=== PATIENT | male | born 1945 | race Caucasian/White ===

== ENCOUNTER 2017-02-05 11:26 | Inpatient (IN) | payer OTHER ==
[2017-02-05] MEDS ORDERED: Magnesium Hydroxide 400 MG/5 ML Susp 30 ML Cup PO PRN (12:06)
[2017-02-05] MEDS ORDERED: Acetaminophen 325 MG Tab PO PRN (12:06)
[2017-02-05] MEDS ORDERED: Albuterol 0.083% 2.5 MG/3 ML Neb Soln NEB PRN (12:06)
[2017-02-05] MEDS ORDERED: PHENYTOIN 100 MG PO SCH (12:06)
[2017-02-05] MEDS ORDERED: DOCUSATE SODIUM PO SCH (12:06)
[2017-02-05] MEDS ORDERED: ONDANSETRON 4 MG PO PRN (12:06)
[2017-02-05] MEDS ORDERED: Polyethylene Glycol 3350 Powder 17 GM Packet PO PRN (12:06)
[2017-02-05] MEDS ORDERED: Zolpidem 5 MG Tab PO PRN (12:06)
[2017-02-05] MEDS ORDERED: SENNOSIDES PO SCH (12:06)
[2017-02-05] MEDS ORDERED: Docusate Sodium 100 MG Cap PO PRN (12:06)
--- NOTE | 2017-02-05 12:56 | CR ---
Abdomen 2V AP Upright Decub HISTORY: Persistent nausea and vomiting FINDINGS: Bowel gas pattern is nonspecific. There is moderate fecal material in the ascending and transverse c olon. No obstruction or free air is identified. No soft tissue mass, organomegaly, or abnormal calci fications are seen. Bony structures are unremarkable. IMPRESSION: Moderate fecal material in the proximal colon. Nonspecific abdomen. No signs of mass, obstruction, o r free air.
[2017-02-05] MEDS ORDERED: Haloperidol 1 MG Tab PO PRN (13:30)
[2017-02-05] MEDS ORDERED: Sodium Phosphate,Monobasic/Sodium Phosphate,Dibasic Enema 133 ML Bottle RECTAL PRN (13:34)
[2017-02-05] MEDS ORDERED: Bisacodyl 10 MG Supp RECTAL ONE (14:00)
[2017-02-05] MEDS: Polyethylene Glycol 3350 Powder 17 GM Packet PO SCH ×2 (14:14→21:20)
[2017-02-05] MEDS: SENNOSIDES PO SCH ×2 (14:15→21:26)
[2017-02-05] MEDS: DOCUSATE SODIUM PO SCH ×2 (14:15→21:26)
--- NOTE | 2017-02-05 15:07 | PCM.HP ---
H&P History of Present Illness - General Date of Service: 02/05/17 Admit Problem/Dx: Admission Diagnosis/Problem Admission Diagnosis/Problem Nausea and vomiting Source of Information: Patient, Family, Old Records, RN Notes Reviewed History Limitations: Reports: No Limitations - History of Present Illness Initial Comments - Free Text/Narative: Mr. Cleaning is a 71-year-old gentleman who has a known history of severe esophageal cancer and is currently enrolled in hospice. Over the past 2 weeks since his hospice admission is had ongoing difficulty with constipation and resultant nausea and vomiting. Associated with this has also been abdominal pain occurring in his left upper quadrant. Pain is intermittent and has been relatively well controlled with current interventions. He has failed outpatient management of his nausea and vomiting with constipation. He is admitted to hospice inpatient status at this time for management of these symptoms. - Related Data Allergies/Adverse Reactions: Allergies Allergy/AdvReac Type Severity Reaction Status Date / Time bees Allergy Severe Anaphylactic Uncoded 11/06/16 10:46 Shock Home Medications: Home Meds Calcium Carbonate [Tums] 500 mg PO ASDIRECTED PRN 08/07/16 [History] Esomeprazole Magnesium [Nexium] 40 mg PO DAILY 08/07/16 [History] Sennosides/Docusate Sodium [Senna-Docusate Sodium Tablet] 8.6 - 50 mg PO BID [History] Acetaminophen [Tylenol Extra Strength] 500 mg PO BID 02/05/17 [History] Bisacodyl [Dulcolax] 10 mg PO PRN 02/05/17 [History] Bisacodyl [Dulcolax] 10 mg RC ASDIRECTED PRN 02/05/17 [History] Furosemide [Lasix] 20 mg PO DAILY 02/05/17 [History] LORazepam 0.5 mg PO BEDTIME 02/05/17 [History] Melatonin 5 mg PO BEDTIME 02/05/17 [History] Morphine [Morphine 20 MG/ML Soln] 10 mg PO ASDIRECTED PRN 02/05/17 [History] Multivitamin [Daily Multiple Vitamin] 1 tab PO DAILY 02/05/17 [History] Ondansetron [Zofran] 4 mg PO BID 02/05/17 [History] Ondansetron [Zofran] 4 mg PO Q4H PRN 02/05/17 [History] Phenytoin Sodium Extended [Dilantin] 200 mg PO BID 02/05/17 [History] Polyethylene Glycol 3350 [Miralax] 17 gm PO DAILY 02/05/17 [History] fentaNYL [Duragesic] 12 mcg TD Q72H 02/05/17 [History] Past Medical History HEENT History: Reports: Impaired Vision Other HEENT History: wears glasses Cardiovascular History: Reports: Hypertension Gastrointestinal History: Reports: Colon Polyp, GERD, GI Bleed, Hiatal Hernia, Other (See Below) Other Gastrointestinal History: anorexia with blood in stool, esophageal cancer Musculoskeletal History: Reports: Fracture Neurological History: Reports: Seizure Other Neuro History: last seizure about 23 yrs ago according to patient. takes dilantin Psychiatric History: Reports: Learning Disability Hematologic History: Reports: Anemia Oncologic (Cancer) History: Reports: Esophageal Dermatologic History: Reports: Other (See Below) Other Dermatologic History: left thoracic spinal area has scab from pressure sore on admission - Past Surgical History HEENT Surgical History: Reports: None Cardiovascular Surgical History: Reports: None GI Surgical History: Reports: None, EGD Dermatological Surgical History: Reports: None Social & Family History - Family History Family Medical History: Noncontributory - Tobacco Use Smoking Status *Q: Never Smoker Second Hand Smoke Exposure: No - Caffeine Use Caffeine Use: Reports: Coffee Other Caffeine Use: few cups per day - Recreational Drug Use Recreational Drug Use: No H&P Review of Systems - Review of Systems: Review Of Systems: See Below General: Reports: Weakness, Weight Loss Pulmonary: Reports: No Symptoms Cardiovascular: Reports: No Symptoms Gastrointestinal: Reports: Abdominal Pain, Constipation, Difficulty Swallowing, Nausea, Vomiting Genitourinary: Reports: No Symptoms Exam - Exam Exam: See Below - Vital Signs Vital Signs: Last Vital Signs Temp 97.7 F 02/05/17 12:06 Pulse 87 02/05/17 12:06 Resp 16 02/05/17 12:06 BP 112/70 02/05/17 12:06 Pulse Ox Weight: 115 lb - Exam General: Alert, Oriented, Cooperative, Moderate Distress HEENT: Conjunctiva Clear, Hearing Intact, Mucosa Moist & [place], Nares Patent, Normal Nasal Septum, Posterior Pharynx Clear, Pupils Equal, Pupils Reactive Neck: Supple, Trachea Midline, +2 Carotid Pulse wo Bruit Lungs: Clear to Auscultation, Normal Respiratory Effort Cardiovascular: Regular Rate, Regular Rhythm, Normal S1, Normal S2 Abdomen: Soft, Distention, Tenderness, Hypoactive Bowel Sounds. No: Organomegaly, Peritoneal Signs, Guarding, Rigidity Back Exam: Normal Inspection, Full Range of Motion, NT Extremities: Edema Skin: Warm, Dry, Intact *Q Meaningful Use (ADM) - VTE *Q VTE Criteria *Q: VTE Anticoagulation Contraindications: Med/tx not indicated/need - VTE Risk Assess *Q Each Risk Factor Represents 1 Point: Swollen Legs, Current Total Score 1 Point Risk Factors: 1 Each Risk Factor Represents 2 Points: Age 60 - 74 Years Total Score 2 Point Risk Factors: 2 Each Risk Factor Represents 3 Points: Present Cancer or Chemotherapy Total Score 3 Point Risk Factors: 3 Each Risk Factor Represents 5 Points: None Total Score 5 Point Risk Factors: 0 Venous Thromboembolism Risk Factor Score *Q: 6 - Stroke *Q Stroke Criteria *Q: - AMI *Q AMI Criteria *Q: Problem List Initiated/Reviewed/Updated: Yes Orders Last 24hrs: Active Orders 24 hr Category Date Time Status Patient Status [ADT] Routine ADT 02/05/17 12:06 Active Intake and Output [RC] QSHIFT Care 02/05/17 12:06 Active Oxygen Therapy [RC] PRN Care 02/05/17 12:06 Active RT Aerosol Therapy [RC] ASDIRECTED Care 02/05/17 12:06 Active Up With Assistance [RC] ASDIRECTED Care 02/05/17 12:06 Active VTE/DVT Education [RC] Per Unit Routine Care 02/05/17 12:06 Active Vital Signs [RC] Q4H Care 02/05/17 12:06 Active Consult to Spiritual Care [CONS] Routine Cons 02/05/17 12:06 Active Regular Diet [DIET] Diet 02/05/17 Lunch Active Acetaminophen [Tylenol Extra Strength] Med 02/05/17 21:00 Active 500 mg PO BID Acetaminophen [Tylenol] Med 02/05/17 12:06 Active 650 mg PO Q4H PRN Albuterol [Proventil Neb Soln] Med 02/05/17 12:06 Active 2.5 mg NEB Q4H PRN Docusate Sodium/Sennosides [Senna Plus] Med 02/05/17 13:45 Active 2 tab PO BID Erythromycin Ethylsuccinate [Eryped 400] Med 02/05/17 16:00 Ordered 250 mg PO QID Esomeprazole Magnesium [Nexium] Med 02/06/17 07:30 Active 0 mg PO DAILY@0730 Furosemide [Lasix] Med 02/06/17 09:00 Active 20 mg PO DAILY Haloperidol [Haldol] Med 02/05/17 13:30 Active 2 mg PO Q4H PRN LORazepam [Ativan ORAL Concentrate 1MG/0.5 ML U/D] Med 02/05/17 12:06 Active 0.5 - 1 mg SL Q2H PRN LORazepam [Ativan] Med 02/05/17 21:00 Active 0.5 mg PO BEDTIME Magnesium Hydroxide [Milk of Magnesia] Med 02/05/17 12:06 Active 30 ml PO Q12H PRN Melatonin Med 02/05/17 21:00 Active 6 mg PO BEDTIME Morphine [Morphine 10 MG/0.5 ML Oral Syringe] Med 02/05/17 12:06 Active 5 - 10 mg SL Q1H PRN Na Phos,M-B/Na Phos,DI-B [Fleet Enema] Med 02/05/17 13:34 Active 133 ml RECTAL ONETIME PRN Non-Formulary Medication [NF Drug] Med 02/05/17 12:06 Active 0 each PO Q6H PRN Phenytoin Med 02/05/17 21:00 Active 200 mg PO BID Polyethylene Glycol 3350 [MiraLAX] Med 02/05/17 12:06 Active 17 gm PO DAILY PRN Polyethylene Glycol 3350 [MiraLAX] Med 02/05/17 13:45 Active 34 gm PO BID Psyllium Husk/Aspartame [Metamucil Sugar Free] Med 02/06/17 09:00 Active 1 packet PO DAILY Scopolamine [Transderm-Scop] Med 02/05/17 14:15 Ordered 1.5 mg TRDERM Q72H Zolpidem [Ambien] Med 02/05/17 12:06 Active 5 mg PO BEDTIME PRN Anticoagulation Contraindications VTE [AST] Per Unit Oth 02/05/17 12:06 Ordered Routine Resuscitation Status Routine Resus Stat 02/05/17 11:53 Ordered Medication Orders Acetaminophen (Tylenol) 650 mg PO Q4H PRN PRN Reason: Pain (Mild 1-3)/fever Last Admin: 02/05/17 14:22 Dose: 650 mg Acetaminophen (Tylenol Extra Strength) 500 mg PO BID [facility] Albuterol (Proventil Neb Soln) 2.5 mg NEB Q4H PRN PRN Reason: Shortness Of Breath/wheezing Erythromycin Ethylsuccinate (Eryped 400) 250 mg PO QID [facility] Furosemide (Lasix) 20 mg PO DAILY [facility] Haloperidol (Haldol) 2 mg PO Q4H PRN PRN Reason: Nausea Lorazepam (Ativan Oral Concentrate 1mg/0.5 Ml U/D) 0.5 - 1 mg SL Q2H PRN PRN Reason: Nausea Lorazepam (Ativan) 0.5 mg PO BEDTIME [facility] Magnesium Hydroxide (Milk Of Magnesia) 30 ml PO Q12H PRN PRN Reason: Constipation Melatonin (Melatonin) 6 mg PO BEDTIME [facility] Morphine Sulfate (Morphine 10 Mg/0.5 Ml Oral Syringe) 5 - 10 mg SL Q1H PRN PRN Reason: Pain Nexium 40 Mg (Ptom) 0 mg PO DAILY@0730 [facility] Ondansetron 4mg ( (Ptom)) 0 each PO Q6H PRN PRN Reason: Nausea able to take PO Phenytoin Sodium (Phenytoin) 200 mg PO BID [facility] Polyethylene Glycol (Miralax) 17 gm PO DAILY PRN PRN Reason: Constipation Polyethylene Glycol (Miralax) 34 gm PO BID [facility] Last Admin: 02/05/17 14:14 Dose: 34 gm Psyllium Husk (Metamucil Sugar Free) 1 packet PO DAILY [facility] Scopolamine (Transderm-Scop) 1.5 mg TRDERM Q72H [facility] Senna/Docusate Sodium (Senna Plus) 2 tab PO BID [facility] Last Admin: 02/05/17 14:15 Dose: 2 tab Sodium Biphosphate/Sodium Phosphate (Fleet Enema) 133 ml RECTAL ONETIME PRN PRN Reason: Constipation Zolpidem Tartrate (Ambien) 5 mg PO BEDTIME PRN PRN Reason: Sleep Assessment/Plan Comment:: ASSESSMENT AND PLAN OBSTIPATION WITH NAUSEA AND VOMITING-ongoing symptoms over the past 2 weeks, has now failed outpatient management. Abdominal flat plate and upright x-ray obtained on admission shows no evidence of bowel obstruction but does document moderate amount of stool within the colon. He will be admitted to hospice inpatient status for management of symptoms, having failed outpatient treatment -Scopolamine patch -Erythromycin 250 mg by mouth 4 times a day -Senna as 2 tablets twice daily -MiraLAX 34 g by mouth twice a day -Dulcolax suppository -Fleet enema x2 if no results from suppository -Zofran, lorazepam, and/or Haldol as needed for nausea ESOPHAGEAL CANCER -Discontinue fentanyl patch because of lack of subcutaneous fat -Morphine 5-10 mg sublingually every hour as needed for pain MAINTENANCE ISSUES -DVT prophylaxis; not indicated -GI prophylaxis; continue PPI therapy -Polo catheter; none indicated -Nutrition; regular diet as tolerated -Nicotine dependence; not required CODE STATUS-DNR/DNI, comfort cares only ADMISSION STATUS-patient will be admitted to inpatient status, expect at least a 2 night hospital stay for evaluation and management of problems as outlined above. At the time of this admission I do not reasonably expected evaluation and management of this problem will require more than a 96 hour hospital stay. DISPOSITION-anticipate discharge to home with hospice, after his hospital stay PRIMARY CARE PROVIDER-
[2017-02-05] MEDS: Scopolamine 1.5 MG Transdermal Patch TRDERM SCH (16:34)
[2017-02-05] MEDS: Erythromycin Ethylsuccinate Susp 400 MG/5 ML 100 ML Bottle PO SCH ×2 (16:35→21:35)
[2017-02-05] MEDS ORDERED: Docusate Sodium 100 MG Cap PO SCH (21:00)
[2017-02-05] MEDS: Morphine 10 MG/0.5 ML Oral Syringe SL PRN (21:24)
[2017-02-05] MEDS: LORazepam 0.5 MG Tab PO SCH (21:25)
[2017-02-05] MEDS: MELATONIN 3 MG PO SCH (21:27)
[2017-02-05] MEDS: PHENYTOIN 100 MG PO SCH (21:27)
[2017-02-05] MEDS: Acetaminophen 500 MG Tab PO SCH (21:28)
[2017-02-06] MEDS: Erythromycin Ethylsuccinate Susp 400 MG/5 ML 100 ML Bottle PO SCH ×4 (06:01→22:59)
[2017-02-06] MEDS: NEXIUM 40 MG PO SCH (07:20)
[2017-02-06] MEDS: PHENYTOIN 100 MG PO SCH ×2 (09:06→21:48)
[2017-02-06] MEDS: Furosemide 20 MG (PTOM) PO SCH (09:07)
[2017-02-06] MEDS: DOCUSATE SODIUM PO SCH ×2 (09:09→21:50)
[2017-02-06] MEDS: SENNOSIDES PO SCH ×2 (09:09→21:50)
[2017-02-06] MEDS: Psyllium Husk Powder Sugar Free 3.4 GM Packet PO SCH (09:09)
[2017-02-06] MEDS: Polyethylene Glycol 3350 Powder 17 GM Packet PO SCH ×2 (09:10→21:48)
[2017-02-06] MEDS: CHECK SCOPOLAMINE PATCH TOP SCH (09:10)
[2017-02-06] MEDS: Acetaminophen 500 MG Tab PO SCH ×2 (10:35→21:50)
[2017-02-06] MEDS ORDERED: Bisacodyl 10 MG Supp RECTAL ONE (14:00)
--- NOTE | 2017-02-06 15:45 | PCM.PN ---
- General Info Date of Service: 02/06/17 Functional Status: Reports: pain controlled, tolerating diet - Review of Systems General: Reports: Weakness. Denies: Fever, Chills Pulmonary: Reports: no symptoms Cardiovascular: Reports: No Symptoms Gastrointestinal: Reports: Abdominal pain, Constipation, Nausea. Denies: Vomiting Systems Review Comment:: Mr. Cleaning has improved since admission, he did have a large bowel movement yesterday afternoon. Appetite is better with improved oral intake. Continues to feel somewhat bloated today with abdominal discomfort. - Patient Data Vitals - most recent: Last Vital Signs Temp 97.1 F 02/06/17 07:08 Pulse 90 02/06/17 07:08 Resp 18 02/06/17 07:08 BP 106/87 02/06/17 07:08 Pulse Ox 92 L 02/05/17 23:26 Weight - most recent: 130 lb Med Orders - Current: Current Medications Acetaminophen (Tylenol) 650 mg PO Q4H PRN PRN Reason: Pain (Mild 1-3)/fever Last Admin: 02/05/17 14:22 Dose: 650 mg Acetaminophen (Tylenol Extra Strength) 500 mg PO BID [facility] Last Admin: 02/06/17 10:35 Dose: 500 mg Albuterol (Proventil Neb Soln) 2.5 mg NEB Q4H PRN PRN Reason: Shortness Of Breath/wheezing Erythromycin Ethylsuccinate (Eryped 400) 250 mg PO QID [facility] Last Admin: 02/06/17 10:32 Dose: 250 mg Furosemide (Lasix) 20 mg PO DAILY [facility] Last Admin: 02/06/17 09:07 Dose: 20 mg Haloperidol (Haldol) 2 mg PO Q4H PRN PRN Reason: Nausea Lorazepam (Ativan Oral Concentrate 1mg/0.5 Ml U/D) 0.5 - 1 mg SL Q2H PRN PRN Reason: Nausea Lorazepam (Ativan) 0.5 mg PO BEDTIME [facility] Last Admin: 02/05/17 21:25 Dose: 0.5 mg Magnesium Hydroxide (Milk Of Magnesia) 30 ml PO Q12H PRN PRN Reason: Constipation Melatonin (Melatonin) 6 mg PO BEDTIME [facility] Last Admin: 02/05/17 21:27 Dose: 6 mg Morphine Sulfate (Morphine 10 Mg/0.5 Ml Oral Syringe) 5 - 10 mg SL Q1H PRN PRN Reason: Pain Last Admin: 02/05/17 21:24 Dose: 10 mg Nexium 40 Mg (Ptom) 0 mg PO DAILY@0730 [facility] Last Admin: 02/06/17 07:20 Dose: 40 mg Ondansetron 4mg ( (Ptom)) 0 each PO Q6H PRN PRN Reason: Nausea able to take PO Check Scopolamine (Patch) 1 each TOP DAILY [facility] Last Admin: 02/06/17 09:10 Dose: Not Given Phenytoin Sodium (Phenytoin) 200 mg PO BID [facility] Last Admin: 02/06/17 09:06 Dose: 200 mg Polyethylene Glycol (Miralax) 17 gm PO DAILY PRN PRN Reason: Constipation Polyethylene Glycol (Miralax) 34 gm PO BID [facility] Last Admin: 02/06/17 09:10 Dose: 34 gm Psyllium Husk (Metamucil Sugar Free) 1 packet PO DAILY [facility] Last Admin: 02/06/17 09:09 Dose: 1 packet Scopolamine (Transderm-Scop) 1.5 mg TRDERM Q72H [facility] Last Admin: 02/05/17 16:34 Dose: 1.5 mg Senna/Docusate Sodium (Senna Plus) 2 tab PO BID [facility] Last Admin: 02/06/17 09:09 Dose: 2 tab Sodium Biphosphate/Sodium Phosphate (Fleet Enema) 133 ml RECTAL ONETIME PRN PRN Reason: Constipation Zolpidem Tartrate (Ambien) 5 mg PO BEDTIME PRN PRN Reason: Sleep Discontinued Medications Bisacodyl (Dulcolax) 10 mg RECTAL ONETIME ONE Stop: 02/05/17 14:01 Last Admin: 02/05/17 14:15 Dose: 10 mg Bisacodyl (Dulcolax) 10 mg RECTAL ONETIME ONE Stop: 02/06/17 14:01 Last Admin: 02/06/17 14:20 Dose: 10 mg Docusate Sodium (Colace) 100 mg PO BID PRN PRN Reason: Constipation Docusate Sodium (Colace) 100 mg PO BID [facility] Phenytoin Sodium (Phenytoin) 200 mg PO BID [facility] Last Admin: 02/05/17 17:46 Dose: Not Given Senna/Docusate Sodium (Senna Plus) 1 tab PO BID [facility] Last Admin: 02/05/17 17:46 Dose: Not Given - Exam General: alert, oriented, cooperative, mild distress Lungs: Clear to auscultation, Normal respiratory effort Cardiovascular: Regular Rate, Regular Rhythm, No Murmurs Abdomen: bowel sounds present, soft, no tenderness, no distension Extremities: edema Skin: warm, dry, intact - Problem List Review Problem List Initiated/Reviewed/Updated: Yes - My Orders Last 24 Hours: My Active Orders 02/05/17 16:00 Erythromycin Ethylsuccinate [Eryped 400] 250 mg PO QID 02/05/17 21:00 Acetaminophen [Tylenol Extra Strength] 500 mg PO BID LORazepam [Ativan] 0.5 mg PO BEDTIME Melatonin 6 mg PO BEDTIME Phenytoin 200 mg PO BID 02/06/17 07:30 Esomeprazole Magnesium [Nexium] 0 mg PO DAILY@0730 02/06/17 09:00 Furosemide [Lasix] 20 mg PO DAILY Non-Formulary Medication [NF Drug] 1 each TOP DAILY Psyllium Husk/Aspartame [Metamucil Sugar Free] 1 packet PO DAILY - Plan Plan:: ASSESSMENT AND PLAN OBSTIPATION WITH NAUSEA AND VOMITING-ongoing symptoms over the past 2 weeks, has now failed outpatient management. Somewhat improved since admission, continues to feel bloated with abdominal distention and intermittent nausea. Oral intake has improved since admission but has made his abdominal symptoms somewhat worse. -Scopolamine patch -Erythromycin 250 mg by mouth 4 times a day -SennaS 2 tablets twice daily -MiraLAX 34 g by mouth twice a day -Dulcolax suppository -Fleet enema x2 if no results from suppository -Zofran, lorazepam, and/or Haldol as needed for nausea ESOPHAGEAL CANCER -Discontinue fentanyl patch because of lack of subcutaneous fat -Morphine 5-10 mg sublingually every hour as needed for pain MAINTENANCE ISSUES -DVT prophylaxis; not indicated -GI prophylaxis; continue PPI therapy -Polo catheter; none indicated -Nutrition; regular diet as tolerated -Nicotine dependence; not required CODE STATUS-DNR/DNI, comfort cares only ADMISSION STATUS-patient will be admitted to inpatient status, expect at least a 2 night hospital stay for evaluation and management of problems as outlined above. At the time of this admission I do not reasonably expected evaluation and management of this problem will require more than a 96 hour hospital stay. DISPOSITION-anticipate discharge to home with hospice, after his hospital stay PRIMARY CARE PROVIDER-
[2017-02-06] MEDS: LORazepam ORAL Concentrate 1MG/0.5ML U/D SL PRN (17:06)
[2017-02-06] MEDS ORDERED: Sodium Phosphate,Monobasic/Sodium Phosphate,Dibasic Enema 133 ML Bottle RECTAL ONE (17:38)
[2017-02-06] MEDS: MELATONIN 3 MG PO SCH (21:49)
[2017-02-06] MEDS: LORazepam 0.5 MG Tab PO SCH (21:54)
[2017-02-07] MEDS: NEXIUM 40 MG PO SCH (07:16)
[2017-02-07] MEDS: Erythromycin Ethylsuccinate Susp 400 MG/5 ML 100 ML Bottle PO SCH ×4 (07:16→22:10)
[2017-02-07] MEDS: SENNOSIDES PO SCH ×2 (08:46→22:10)
[2017-02-07] MEDS: Furosemide 20 MG (PTOM) PO SCH (08:46)
[2017-02-07] MEDS: DOCUSATE SODIUM PO SCH ×2 (08:46→22:10)
[2017-02-07] MEDS: PHENYTOIN 100 MG PO SCH ×2 (08:46→22:09)
[2017-02-07] MEDS: Psyllium Husk Powder Sugar Free 3.4 GM Packet PO SCH (08:47)
[2017-02-07] MEDS: Polyethylene Glycol 3350 Powder 17 GM Packet PO SCH ×2 (08:47→22:10)
[2017-02-07] MEDS: Acetaminophen 500 MG Tab PO SCH ×2 (08:47→22:10)
[2017-02-07] MEDS: CHECK SCOPOLAMINE PATCH TOP SCH (08:47)
[2017-02-07] MEDS: Morphine 10 MG/0.5 ML Oral Syringe SL PRN (10:16)
[2017-02-07] MEDS ORDERED: Bisacodyl 5 MG Tab PO ONE ×2 (12:00→20:00)
[2017-02-07] MEDS: LORazepam ORAL Concentrate 1MG/0.5ML U/D SL PRN ×2 (12:03→17:03)
--- NOTE | 2017-02-07 12:31 | PCM.PN ---
- General Info Date of Service: 02/07/17 Functional Status: Reports: pain controlled - Review of Systems General: Reports: Weakness. Denies: Fever, Chills Pulmonary: Reports: no symptoms Cardiovascular: Reports: No Symptoms Gastrointestinal: Reports: Abdominal pain, Constipation, Nausea. Denies: Vomiting Systems Review Comment:: This patient has improved since admission but continues to have ongoing difficulty with abdominal distention, pain, and constipation. He has had bowel movements last 2 days but continues to feel bloated, some of this may be secondary to ascites related to his underlying malignancy. Oral intake has been better since admission. - Patient Data Vitals - most recent: Last Vital Signs Temp 96.2 F 02/07/17 10:00 Pulse 89 02/07/17 10:00 Resp 22 H 02/07/17 10:00 BP 105/66 02/07/17 10:00 Pulse Ox 95 02/06/17 19:46 Weight - most recent: 130 lb Med Orders - Current: Current Medications Acetaminophen (Tylenol) 650 mg PO Q4H PRN PRN Reason: Pain (Mild 1-3)/fever Last Admin: 02/05/17 14:22 Dose: 650 mg Acetaminophen (Tylenol Extra Strength) 500 mg PO BID [facility] Last Admin: 02/07/17 08:47 Dose: 500 mg Albuterol (Proventil Neb Soln) 2.5 mg NEB Q4H PRN PRN Reason: Shortness Of Breath/wheezing Bisacodyl (Dulcolax) 10 mg PO ONETIME ONE Stop: 02/07/17 20:01 Erythromycin Ethylsuccinate (Eryped 400) 250 mg PO QID [facility] Last Admin: 02/07/17 10:16 Dose: 250 mg Furosemide (Lasix) 20 mg PO DAILY [facility] Last Admin: 02/07/17 08:46 Dose: 20 mg Haloperidol (Haldol) 2 mg PO Q4H PRN PRN Reason: Nausea Lorazepam (Ativan Oral Concentrate 1mg/0.5 Ml U/D) 0.5 - 1 mg SL Q2H PRN PRN Reason: Nausea Last Admin: 02/07/17 12:03 Dose: 1 mg Lorazepam (Ativan) 0.5 mg PO BEDTIME [facility] Last Admin: 02/06/17 21:54 Dose: 0.5 mg Magnesium Hydroxide (Milk Of Magnesia) 30 ml PO Q12H PRN PRN Reason: Constipation Melatonin (Melatonin) 6 mg PO BEDTIME [facility] Last Admin: 02/06/17 21:49 Dose: 6 mg Morphine Sulfate (Morphine 10 Mg/0.5 Ml Oral Syringe) 5 - 10 mg SL Q1H PRN PRN Reason: Pain Last Admin: 02/07/17 10:16 Dose: 10 mg Nexium 40 Mg (Ptom) 0 mg PO DAILY@0730 [facility] Last Admin: 02/07/17 07:16 Dose: 40 mg Ondansetron 4mg ( (Ptom)) 0 each PO Q6H PRN PRN Reason: Nausea able to take PO Check Scopolamine (Patch) 1 each TOP DAILY [facility] Last Admin: 02/07/17 08:47 Dose: Not Given Phenytoin Sodium (Phenytoin) 200 mg PO BID [facility] Last Admin: 02/07/17 08:46 Dose: 200 mg Polyethylene Glycol (Miralax) 17 gm PO DAILY PRN PRN Reason: Constipation Polyethylene Glycol (Miralax) 34 gm PO BID [facility] Last Admin: 02/07/17 08:47 Dose: 34 gm Polyethylene Glycol (Miralax) 238 gm PO ONETIME ONE Stop: 02/07/17 14:01 Psyllium Husk (Metamucil Sugar Free) 1 packet PO DAILY [facility] Last Admin: 02/07/17 08:47 Dose: 1 packet Scopolamine (Transderm-Scop) 1.5 mg TRDERM Q72H [facility] Last Admin: 02/05/17 16:34 Dose: 1.5 mg Senna/Docusate Sodium (Senna Plus) 2 tab PO BID [facility] Last Admin: 02/07/17 08:46 Dose: 2 tab Sodium Biphosphate/Sodium Phosphate (Fleet Enema) 133 ml RECTAL ONETIME PRN PRN Reason: Constipation Last Admin: 02/06/17 16:48 Dose: 133 ml Zolpidem Tartrate (Ambien) 5 mg PO BEDTIME PRN PRN Reason: Sleep Discontinued Medications Bisacodyl (Dulcolax) 10 mg RECTAL ONETIME ONE Stop: 02/05/17 14:01 Last Admin: 02/05/17 14:15 Dose: 10 mg Bisacodyl (Dulcolax) 10 mg RECTAL ONETIME ONE Stop: 02/06/17 14:01 Last Admin: 02/06/17 14:20 Dose: 10 mg Bisacodyl (Dulcolax) 10 mg PO ONETIME ONE Stop: 02/07/17 12:01 Last Admin: 02/07/17 11:59 Dose: 10 mg Docusate Sodium (Colace) 100 mg PO BID PRN PRN Reason: Constipation Docusate Sodium (Colace) 100 mg PO BID [facility] Phenytoin Sodium (Phenytoin) 200 mg PO BID [facility] Last Admin: 02/05/17 17:46 Dose: Not Given Senna/Docusate Sodium (Senna Plus) 1 tab PO BID [facility] Last Admin: 02/05/17 17:46 Dose: Not Given Sodium Biphosphate/Sodium Phosphate (Fleet Enema) 133 ml RECTAL ONETIME ONE Stop: 02/06/17 17:39 Last Admin: 02/06/17 18:12 Dose: 133 ml - Exam Lungs: Clear to auscultation, Normal respiratory effort Cardiovascular: Regular Rate, Regular Rhythm Abdomen: bowel sounds present, soft, tenderness, distension. No: rigidity, rebound, guarding Extremities: edema Skin: warm, dry, intact - Problem List Review Problem List Initiated/Reviewed/Updated: Yes - My Orders Last 24 Hours: My Active Orders 02/07/17 14:00 Polyethylene Glycol 3350 [MiraLAX] 238 gm PO ONETIME ONE 02/07/17 20:00 Bisacodyl [Dulcolax] 10 mg PO ONETIME ONE - Plan Plan:: ASSESSMENT AND PLAN OBSTIPATION WITH NAUSEA AND VOMITING-ongoing symptoms over the past 2 weeks, has now failed outpatient management. Somewhat improved since admission, continues to feel bloated with abdominal distention and intermittent nausea despite 2 bowel movements over the past 2 days. Suspect that he does have some component of ascites in the abdomen contributing to current distention. -Colonoscopy prep today -Abdominal ultrasound to evaluate for ascites -Scopolamine patch -Erythromycin 250 mg by mouth 4 times a day -SennaS 2 tablets twice daily -MiraLAX 34 g by mouth twice a day -Dulcolax suppository -Fleet enema x2 if no results from suppository -Zofran, lorazepam, and/or Haldol as needed for nausea ESOPHAGEAL CANCER -Discontinue fentanyl patch because of lack of subcutaneous fat -Morphine 5-10 mg sublingually every hour as needed for pain MAINTENANCE ISSUES -DVT prophylaxis; not indicated -GI prophylaxis; continue PPI therapy -Polo catheter; none indicated -Nutrition; regular diet as tolerated -Nicotine dependence; not required CODE STATUS-DNR/DNI, comfort cares only ADMISSION STATUS-patient will be admitted to inpatient status, expect at least a 2 night hospital stay for evaluation and management of problems as outlined above. At the time of this admission I do not reasonably expected evaluation and management of this problem will require more than a 96 hour hospital stay. DISPOSITION-anticipate discharge to home with hospice, after his hospital stay PRIMARY CARE PROVIDER-
--- NOTE | 2017-02-07 13:53 | US ---
Abdomen Ltd HISTORY: Esophageal carcinoma, evaluate for ascites FINDINGS: Limited abdominal ultrasound was obtained to assess for ascites. A large amount of ascites is identified in all 4 quadrants of the abdomen. IMPRESSION: Large amount of free fluid throughout the abdomen.
[2017-02-07] MEDS ORDERED: Polyethylene Glycol 3350 Powder 238 GM Bot PO ONE (14:00)
[2017-02-07] MEDS: LORazepam 0.5 MG Tab PO SCH (22:07)
[2017-02-07] MEDS: MELATONIN 3 MG PO SCH (22:08)
[2017-02-08] MEDS: Erythromycin Ethylsuccinate Susp 400 MG/5 ML 100 ML Bottle PO SCH ×4 (05:55→21:50)
--- NOTE | 2017-02-08 08:00 | OR ---
DATE OF PROCEDURE: 02/07/2017 PREPROCEDURE DIAGNOSIS: Massive ascites. POSTOPERATIVE DIAGNOSIS: Massive ascites. PROCEDURE: Paracentesis removing 6,050 mL of serous fluid. ANESTHESIA: Lidocaine 1% plain. INDICATION: This 71-year-old white male is in the hospital with esophageal cancer that is metastatic. He is in hospice. He has massive ascites. He is very uncomfortable because of this. He is having difficulty breathing and eating. A request is made for paracentesis to help him feel more comfortable. The examination grader marked a good spot for the paracentesis. The nurses obtained informed consent for this from his guardian. DESCRIPTION OF PROCEDURE: The left lower quadrant of the patient's abdomen was prepped and draped in usual sterile fashion. Lidocaine 1% plain was infiltrated at the site marked by the examination grader for the planned paracentesis. The needle was introduced into the abdomen as we anesthetized the area and aspirated obtaining serous fluid indicating this is a good place for the paracentesis. Time-out was held. A small skin incision was then made. At this point, a thoracentesis catheter manufactured by [employer] was used for the paracentesis. A small skin incision was made. The catheter was introduced into the abdomen. As soon as we obtained fluid, the needle was removed and the catheter was advanced into the abdomen. We then using the suction bowel technique removed 6, 050 mL of serous fluid. When no more fluid could be removed, the catheter was removed. A Band-Aid was placed at the paracentesis site. He tolerated the procedure well. I discussed with Dr. Sewell about the possibility of giving him some albumin, but it was felt we needs to watch him and see how he does. He does not have an IV in and we don't want to be real aggressive. Madhu Wilson MD /[id number] [email or web address]
[2017-02-08] MEDS: Psyllium Husk Powder Sugar Free 3.4 GM Packet PO SCH (09:34)
[2017-02-08] MEDS: DOCUSATE SODIUM PO SCH ×2 (09:35→20:15)
[2017-02-08] MEDS: SENNOSIDES PO SCH ×2 (09:35→20:15)
[2017-02-08] MEDS: Polyethylene Glycol 3350 Powder 17 GM Packet PO SCH ×2 (09:35→20:14)
[2017-02-08] MEDS: NEXIUM 40 MG PO SCH (09:37)
[2017-02-08] MEDS: Furosemide 20 MG (PTOM) PO SCH (09:38)
[2017-02-08] MEDS: Acetaminophen 500 MG Tab PO SCH ×2 (09:39→20:15)
[2017-02-08] MEDS: PHENYTOIN 100 MG PO SCH ×2 (09:39→20:15)
[2017-02-08] MEDS: CHECK SCOPOLAMINE PATCH TOP SCH (10:47)
[2017-02-08] MEDS: Scopolamine 1.5 MG Transdermal Patch TRDERM SCH (15:06)
--- NOTE | 2017-02-08 15:17 | PCM.PN ---
- General Info Date of Service: 02/08/17 Functional Status: Reports: pain controlled, tolerating diet, ambulating, urinating - Review of Systems Pulmonary: Reports: no symptoms Cardiovascular: Reports: No Symptoms Gastrointestinal: Reports: Abdominal pain. Denies: Nausea, Vomiting Systems Review Comment:: This patient feels significantly improved over the past 24 hours following a large volume paracentesis of 6 L. He also is had several bowel movements with no further constipation. - Patient Data Vitals - most recent: Last Vital Signs Temp 98.6 F 02/08/17 10:10 Pulse 81 02/08/17 10:10 Resp 14 02/08/17 10:10 BP 86/50 L 02/08/17 10:10 Pulse Ox 94 L 02/08/17 10:10 Weight - most recent: 130 lb I&O - last 24 hours: Intake & Output 02/08/17 02/08/17 02/08/17 06:59 14:59 22:59 Output Total 300 Balance -300 Med Orders - Current: Current Medications Acetaminophen (Tylenol) 650 mg PO Q4H PRN PRN Reason: Pain (Mild 1-3)/fever Last Admin: 02/05/17 14:22 Dose: 650 mg Acetaminophen (Tylenol Extra Strength) 500 mg PO BID [facility] Last Admin: 02/08/17 09:39 Dose: 500 mg Albuterol (Proventil Neb Soln) 2.5 mg NEB Q4H PRN PRN Reason: Shortness Of Breath/wheezing Erythromycin Ethylsuccinate (Eryped 400) 250 mg PO QID [facility] Last Admin: 02/08/17 15:05 Dose: 250 mg Furosemide (Lasix) 20 mg PO DAILY [facility] Last Admin: 02/08/17 09:38 Dose: 20 mg Haloperidol (Haldol) 2 mg PO Q4H PRN PRN Reason: Nausea Lorazepam (Ativan Oral Concentrate 1mg/0.5 Ml U/D) 0.5 - 1 mg SL Q2H PRN PRN Reason: Nausea Last Admin: 02/07/17 17:03 Dose: 1 mg Lorazepam (Ativan) 0.5 mg PO BEDTIME [facility] Last Admin: 02/07/17 22:07 Dose: 0.5 mg Magnesium Hydroxide (Milk Of Magnesia) 30 ml PO Q12H PRN PRN Reason: Constipation Melatonin (Melatonin) 6 mg PO BEDTIME [facility] Last Admin: 02/07/17 22:08 Dose: 6 mg Morphine Sulfate (Morphine 10 Mg/0.5 Ml Oral Syringe) 5 - 10 mg SL Q1H PRN PRN Reason: Pain Last Admin: 02/07/17 10:16 Dose: 10 mg Nexium 40 Mg (Ptom) 0 mg PO DAILY@0730 [facility] Last Admin: 02/08/17 09:37 Dose: 40 mg Ondansetron 4mg ( (Ptom)) 0 each PO Q6H PRN PRN Reason: Nausea able to take PO Check Scopolamine (Patch) 1 each TOP DAILY [facility] Last Admin: 02/08/17 10:47 Dose: Not Given Phenytoin Sodium (Phenytoin) 200 mg PO BID [facility] Last Admin: 02/08/17 09:39 Dose: 200 mg Polyethylene Glycol (Miralax) 17 gm PO DAILY PRN PRN Reason: Constipation Polyethylene Glycol (Miralax) 34 gm PO BID [facility] Last Admin: 02/08/17 09:35 Dose: Not Given Psyllium Husk (Metamucil Sugar Free) 1 packet PO DAILY [facility] Last Admin: 02/08/17 09:34 Dose: Not Given Scopolamine (Transderm-Scop) 1.5 mg TRDERM Q72H [facility] Last Admin: 02/08/17 15:06 Dose: 1.5 mg Senna/Docusate Sodium (Senna Plus) 2 tab PO BID [facility] Last Admin: 02/08/17 09:35 Dose: Not Given Sodium Biphosphate/Sodium Phosphate (Fleet Enema) 133 ml RECTAL ONETIME PRN PRN Reason: Constipation Last Admin: 02/06/17 16:48 Dose: 133 ml Zolpidem Tartrate (Ambien) 5 mg PO BEDTIME PRN PRN Reason: Sleep Discontinued Medications Bisacodyl (Dulcolax) 10 mg RECTAL ONETIME ONE Stop: 02/05/17 14:01 Last Admin: 02/05/17 14:15 Dose: 10 mg Bisacodyl (Dulcolax) 10 mg RECTAL ONETIME ONE Stop: 02/06/17 14:01 Last Admin: 02/06/17 14:20 Dose: 10 mg Bisacodyl (Dulcolax) 10 mg PO ONETIME ONE Stop: 02/07/17 12:01 Last Admin: 02/07/17 11:59 Dose: 10 mg Bisacodyl (Dulcolax) 10 mg PO ONETIME ONE Stop: 02/07/17 20:01 Last Admin: 02/07/17 22:07 Dose: 10 mg Docusate Sodium (Colace) 100 mg PO BID PRN PRN Reason: Constipation Docusate Sodium (Colace) 100 mg PO BID [facility] Phenytoin Sodium (Phenytoin) 200 mg PO BID [facility] Last Admin: 02/05/17 17:46 Dose: Not Given Polyethylene Glycol (Miralax) 238 gm PO ONETIME ONE Stop: 02/07/17 14:01 Last Admin: 02/07/17 13:57 Dose: 238 gram Senna/Docusate Sodium (Senna Plus) 1 tab PO BID [facility] Last Admin: 02/05/17 17:46 Dose: Not Given Sodium Biphosphate/Sodium Phosphate (Fleet Enema) 133 ml RECTAL ONETIME ONE Stop: 02/06/17 17:39 Last Admin: 02/06/17 18:12 Dose: 133 ml - Exam General: alert, oriented, cooperative, mild distress Lungs: Clear to auscultation, Normal respiratory effort Cardiovascular: Regular Rate, Regular Rhythm, No Murmurs Abdomen: bowel sounds present, soft, no distension, tenderness. No: rigidity, rebound, guarding - Problem List Review Problem List Initiated/Reviewed/Updated: Yes - My Orders Last 24 Hours: My Active Orders 02/07/17 15:17 Consult to Physician [CONS] Routine 02/07/17 15:38 Notify Provider Consults [RC] ASDIRECTED 02/08/17 15:13 Communication Order [RC] ROUTINE - Plan Plan:: ASSESSMENT AND PLAN OBSTIPATION WITH NAUSEA AND VOMITING-no further constipation following colonoscopy prep yesterday -Scopolamine patch -Erythromycin 250 mg by mouth 4 times a day -SennaS 2 tablets twice daily -MiraLAX 34 g by mouth twice a day -Dulcolax suppository -Fleet enema x2 if no results from suppository -Zofran, lorazepam, and/or Haldol as needed for nausea ESOPHAGEAL CANCER-found to have significant ascites yesterday on ultrasound, status post large volume paracentesis. As a result of the paracentesis he is much more comfortable. We'll plan to change to hospice inpatient respite status today -Discontinue fentanyl patch because of lack of subcutaneous fat -Morphine 5-10 mg sublingually every hour as needed for pain MAINTENANCE ISSUES -DVT prophylaxis; not indicated -GI prophylaxis; continue PPI therapy -Polo catheter; none indicated -Nutrition; regular diet as tolerated -Nicotine dependence; not required CODE STATUS-DNR/DNI, comfort cares only ADMISSION STATUS-status will be changed to hospice respite inpatient DISPOSITION-anticipate discharge to home with hospice, after his hospital stay PRIMARY CARE PROVIDER-
[2017-02-08] MEDS: MELATONIN 3 MG PO SCH (20:14)
[2017-02-08] MEDS: LORazepam 0.5 MG Tab PO SCH (21:49)
[2017-02-09] MEDS: Erythromycin Ethylsuccinate Susp 400 MG/5 ML 100 ML Bottle PO SCH ×4 (05:40→21:00)
[2017-02-09] MEDS: NEXIUM 40 MG PO SCH (10:20)
[2017-02-09] MEDS: Psyllium Husk Powder Sugar Free 3.4 GM Packet PO SCH (10:21)
[2017-02-09] MEDS: Polyethylene Glycol 3350 Powder 17 GM Packet PO SCH ×2 (10:21→20:56)
[2017-02-09] MEDS: CHECK SCOPOLAMINE PATCH TOP SCH (10:22)
[2017-02-09] MEDS: PHENYTOIN 100 MG PO SCH ×2 (10:22→20:56)
[2017-02-09] MEDS: SENNOSIDES PO SCH ×2 (10:23→20:57)
[2017-02-09] MEDS: DOCUSATE SODIUM PO SCH ×2 (10:23→20:57)
[2017-02-09] MEDS: Acetaminophen 500 MG Tab PO SCH ×2 (10:24→20:58)
[2017-02-09] MEDS: MELATONIN 3 MG PO SCH (20:55)
[2017-02-09] MEDS: LORazepam 0.5 MG Tab PO SCH (21:00)
[2017-02-10] MEDS: Erythromycin Ethylsuccinate Susp 400 MG/5 ML 100 ML Bottle PO SCH ×4 (06:53→21:19)
[2017-02-10] MEDS: NEXIUM 40 MG PO SCH (08:20)
[2017-02-10] MEDS: Polyethylene Glycol 3350 Powder 17 GM Packet PO SCH ×2 (08:22→21:18)
[2017-02-10] MEDS: CHECK SCOPOLAMINE PATCH TOP SCH (10:13)
[2017-02-10] MEDS: Psyllium Husk Powder Sugar Free 3.4 GM Packet PO SCH (10:14)
[2017-02-10] MEDS: PHENYTOIN 100 MG PO SCH ×2 (10:14→21:17)
[2017-02-10] MEDS: SENNOSIDES PO SCH ×2 (10:15→21:18)
[2017-02-10] MEDS: DOCUSATE SODIUM PO SCH ×2 (10:15→21:18)
[2017-02-10] MEDS: Acetaminophen 500 MG Tab PO SCH ×2 (10:15→21:19)
[2017-02-10] MEDS: LORazepam 0.5 MG Tab PO SCH (21:17)
[2017-02-10] MEDS: MELATONIN 3 MG PO SCH (21:18)
[2017-02-11] MEDS: Scopolamine 1.5 MG Transdermal Patch TRDERM SCH ×2 (01:43→14:45)
[2017-02-11] MEDS: Erythromycin Ethylsuccinate Susp 400 MG/5 ML 100 ML Bottle PO SCH ×4 (05:50→21:16)
[2017-02-11] MEDS: NEXIUM 40 MG PO SCH (07:35)
[2017-02-11] MEDS: Polyethylene Glycol 3350 Powder 17 GM Packet PO SCH ×2 (08:37→21:15)
[2017-02-11] MEDS: Psyllium Husk Powder Sugar Free 3.4 GM Packet PO SCH (08:37)
[2017-02-11] MEDS: PHENYTOIN 100 MG PO SCH ×2 (08:38→21:16)
[2017-02-11] MEDS: DOCUSATE SODIUM PO SCH ×2 (08:39→21:15)
[2017-02-11] MEDS: SENNOSIDES PO SCH ×2 (08:39→21:15)
[2017-02-11] MEDS: Acetaminophen 500 MG Tab PO SCH ×2 (08:40→21:17)
[2017-02-11] MEDS: CHECK SCOPOLAMINE PATCH TOP SCH (09:11)
--- NOTE | 2017-02-11 10:45 | PCM.DCSUM1 ---
Discharge Summary - Hospital Course Brief History: Mr. Cleaning is a 71-year-old gentleman who was admitted to hospice inpatient status for symptom management of abdominal pain with nausea vomiting secondary to constipation. He had failed medical management at home with hospice services. - Discharge Data Discharge Date: 02/12/17 Discharge Disposition: DC/Tfer to Hospice - Home 50 Condition: Poor - Discharge Diagnosis/Problem(s) (1) Ascites, malignant SNOMED Code(s): 174131160 ICD Code: R18.0 - MALIGNANT ASCITES Status: Acute Current Visit: Yes (2) Constipation SNOMED Code(s): 44496113 ICD Code: K59.00 - CONSTIPATION, UNSPECIFIED Status: Acute Current Visit : Yes (3) Nausea & vomiting SNOMED Code(s): 53350046 ICD Code: R11.2 - NAUSEA WITH VOMITING, UNSPECIFIED Status: Acute Current Visit: Yes (4) Cancer of thoracic esophagus SNOMED Code(s): 045073874 ICD Code: C15.4 - MALIGNANT NEOPLASM OF MIDDLE THIRD OF ESOPHAGUS Status: Chronic Current Visit: No - Patient Summary/Data Consults: Consultations 02/05/17 12:06 Consult to Spiritual Care [CONS] Routine 02/07/17 15:17 Consult to Physician [CONS] Routine Consulting Provider: Madhu Wilson Call Completed to Consulting Physician: Yes Reason for Consult: Therapeutic paracentesis, metastatic esophageal carcinoma Hospital Course: Mr. Cleaning is a 71-year-old gentleman with a known history of metastatic esophageal cancer. He is currently enrolled in hospice and it had ongoing difficulty with nausea vomiting and abdominal pain secondary to constipation over the past 2 weeks. Because of his ongoing discomfort, which had failed outpatient management, he was admitted to hospice inpatient status for further management. He was given scheduled doses of Sinemet has and MiraLAX twice daily , also received Dulcolax suppositories and fleets enemas. He did have a bowel movement each of the first 2 days of admission but did not have significant improvement in symptoms. For this reason he was given a colonoscopy bowel prep. On admission abdominal flat plate and upright x-ray have been obtained showing stool within the colon but no evidence of significant obstruction. Because of persistent abdominal distention despite results for management of constipation an ultrasound of the abdomen was obtained and showed a significant amount of ascites. He was seen and evaluated by Dr. Wilson in his therapeutic paracentesis was performed removing 6 L of ascitic fluid. Symptoms did improve significantly following the paracentesis. He was transitioned to hospice respite status. He remained stable while on hospice respite and will be discharged home with family and ongoing hospice care. Activity will be as tolerated and he will resume his usual diet. - Patient Instructions Diet: Usual Diet as Tolerated Activity: As Tolerated - Discharge Plan Prescriptions/Med Rec: Docusate Sodium/Sennosides [Senna Plus] 2 tab PO BID #120 tablet Polyethylene Glycol 3350 [Miralax] 34 gm PO BID #120 powd.pack Home Medications: Home Meds Calcium Carbonate [Tums] 500 mg PO ASDIRECTED PRN 08/07/16 [History] Esomeprazole Magnesium [Nexium] 40 mg PO DAILY 08/07/16 [History] Acetaminophen [Tylenol Extra Strength] 500 mg PO BID 02/05/17 [History] Bisacodyl [Dulcolax] 10 mg PO PRN 02/05/17 [History] Bisacodyl [Dulcolax] 10 mg RC ASDIRECTED PRN 02/05/17 [History] Furosemide [Lasix] 20 mg PO DAILY 02/05/17 [History] LORazepam 0.5 mg PO BEDTIME 02/05/17 [History] Melatonin 5 mg PO BEDTIME 02/05/17 [History] Morphine [Morphine 20 MG/ML Soln] 10 mg PO ASDIRECTED PRN 02/05/17 [History] Multivitamin [Daily Multiple Vitamin] 1 tab PO DAILY 02/05/17 [History] Ondansetron [Zofran] 4 mg PO BID 02/05/17 [History] Ondansetron [Zofran] 4 mg PO Q4H PRN 02/05/17 [History] Phenytoin Sodium Extended [Dilantin] 200 mg PO BID 02/05/17 [History] Docusate Sodium/Sennosides [Senna Plus] 2 tab PO BID #120 tablet 02/11/17 [Rx] Polyethylene Glycol 3350 [Miralax] 34 gm PO BID #120 powd.pack 02/11/17 [Rx] - Patient Data Vitals - Most Recent: Last Vital Signs Temp 97.1 F 02/11/17 01:46 Pulse 90 02/11/17 01:46 Resp 18 02/11/17 01:46 BP 73/42 L 02/11/17 01:46 Pulse Ox 96 02/11/17 01:46 Weight - Most Recent: 130 lb I&O - Last 24 hours: Intake & Output 02/10/17 02/11/17 02/11/17 22:59 06:59 14:59 Intake Total 400 510 Balance 400 510 Med Orders - Current: Current Medications Acetaminophen (Tylenol) 650 mg PO Q4H PRN PRN Reason: Pain (Mild 1-3)/fever Last Admin: 02/05/17 14:22 Dose: 650 mg Acetaminophen (Tylenol Extra Strength) 500 mg PO BID [facility] Last Admin: 02/11/17 08:40 Dose: 500 mg Albuterol (Proventil Neb Soln) 2.5 mg NEB Q4H PRN PRN Reason: Shortness Of Breath/wheezing Erythromycin Ethylsuccinate (Eryped 400) 250 mg PO QID [facility] Last Admin: 02/11/17 09:12 Dose: 250 mg Haloperidol (Haldol) 2 mg PO Q4H PRN PRN Reason: Nausea Lorazepam (Ativan Oral Concentrate 1mg/0.5 Ml U/D) 0.5 - 1 mg SL Q2H PRN PRN Reason: Nausea Last Admin: 02/07/17 17:03 Dose: 1 mg Lorazepam (Ativan) 0.5 mg PO BEDTIME [facility] Last Admin: 02/10/17 21:17 Dose: 0.5 mg Magnesium Hydroxide (Milk Of Magnesia) 30 ml PO Q12H PRN PRN Reason: Constipation Melatonin (Melatonin) 6 mg PO BEDTIME [facility] Last Admin: 02/10/17 21:18 Dose: 6 mg Morphine Sulfate (Morphine 10 Mg/0.5 Ml Oral Syringe) 5 - 10 mg SL Q1H PRN PRN Reason: Pain Last Admin: 02/07/17 10:16 Dose: 10 mg Nexium 40 Mg (Ptom) 0 mg PO DAILY@0730 [facility] Last Admin: 02/11/17 07:35 Dose: 40 mg Ondansetron 4mg ( (Ptom)) 0 each PO Q6H PRN PRN Reason: Nausea able to take PO Check Scopolamine (Patch) 1 each TOP DAILY [facility] Last Admin: 02/11/17 09:11 Dose: 1 each Phenytoin Sodium (Phenytoin) 200 mg PO BID [facility] Last Admin: 02/11/17 08:38 Dose: 200 mg Polyethylene Glycol (Miralax) 17 gm PO DAILY PRN PRN Reason: Constipation Polyethylene Glycol (Miralax) 34 gm PO BID [facility] Last Admin: 02/11/17 08:37 Dose: 34 gm Psyllium Husk (Metamucil Sugar Free) 1 packet PO DAILY [facility] Last Admin: 02/11/17 08:37 Dose: 1 packet Scopolamine (Transderm-Scop) 1.5 mg TRDERM Q72H [facility] Last Admin: 02/11/17 01:43 Dose: 1.5 mg Senna/Docusate Sodium (Senna Plus) 2 tab PO BID [facility] Last Admin: 02/11/17 08:39 Dose: 2 tab Sodium Biphosphate/Sodium Phosphate (Fleet Enema) 133 ml RECTAL ONETIME PRN PRN Reason: Constipation Last Admin: 02/06/17 16:48 Dose: 133 ml Zolpidem Tartrate (Ambien) 5 mg PO BEDTIME PRN PRN Reason: Sleep Discontinued Medications Bisacodyl (Dulcolax) 10 mg RECTAL ONETIME ONE Stop: 02/05/17 14:01 Last Admin: 02/05/17 14:15 Dose: 10 mg Bisacodyl (Dulcolax) 10 mg RECTAL ONETIME ONE Stop: 02/06/17 14:01 Last Admin: 02/06/17 14:20 Dose: 10 mg Bisacodyl (Dulcolax) 10 mg PO ONETIME ONE Stop: 02/07/17 12:01 Last Admin: 02/07/17 11:59 Dose: 10 mg Bisacodyl (Dulcolax) 10 mg PO ONETIME ONE Stop: 02/07/17 20:01 Last Admin: 02/07/17 22:07 Dose: 10 mg Docusate Sodium (Colace) 100 mg PO BID PRN PRN Reason: Constipation Docusate Sodium (Colace) 100 mg PO BID [facility] Furosemide (Lasix) 20 mg PO DAILY [facility] Last Admin: 02/08/17 09:38 Dose: 20 mg Phenytoin Sodium (Phenytoin) 200 mg PO BID [facility] Last Admin: 02/05/17 17:46 Dose: Not Given Polyethylene Glycol (Miralax) 238 gm PO ONETIME ONE Stop: 02/07/17 14:01 Last Admin: 02/07/17 13:57 Dose: 238 gram Senna/Docusate Sodium (Senna Plus) 1 tab PO BID [facility] Last Admin: 02/05/17 17:46 Dose: Not Given Sodium Biphosphate/Sodium Phosphate (Fleet Enema) 133 ml RECTAL ONETIME ONE Stop: 02/06/17 17:39 Last Admin: 02/06/17 18:12 Dose: 133 ml *Q Meaningful Use (DIS) - VTE *Q VTE Criteria *Q: VTE Anticoagulation Contraindications: Med/tx not indicated/need - Stroke *Q Stroke Criteria *Q: - AMI *Q AMI Criteria *Q:
[2017-02-11] MEDS: MELATONIN 3 MG PO SCH (21:17)
[2017-02-11] MEDS: LORazepam 0.5 MG Tab PO SCH (21:21)
[2017-02-12] MEDS: Erythromycin Ethylsuccinate Susp 400 MG/5 ML 100 ML Bottle PO SCH ×2 (05:21→09:06)
[2017-02-12 07:52] VITALS: BP 84/56
[2017-02-12] MEDS: NEXIUM 40 MG PO SCH (08:59)
[2017-02-12] MEDS: Psyllium Husk Powder Sugar Free 3.4 GM Packet PO SCH (08:59)
[2017-02-12] MEDS: Acetaminophen 500 MG Tab PO SCH (09:02)
[2017-02-12] MEDS: Polyethylene Glycol 3350 Powder 17 GM Packet PO SCH (09:02)
[2017-02-12] MEDS: PHENYTOIN 100 MG PO SCH (09:02)
[2017-02-12] MEDS: DOCUSATE SODIUM PO SCH (09:03)
[2017-02-12] MEDS: SENNOSIDES PO SCH (09:03)
[2017-02-12] MEDS: CHECK SCOPOLAMINE PATCH TOP SCH (09:05)
== END 2017-02-12 15:00 | disposition hospice, home (50) | DRG 375 ==
LOC: JP.MS 11:26
PROVIDERS: ADMIT Hospitalist; ATTEND Internal Medicine
PROC: 0W9G3ZZ Drainage of Peritoneal Cavity, Percutaneous Approach (ICD-10-PCS; principal; 2017-02-07)
DX: C15.4 Malignant neoplasm of middle third of esophagus (principal); R18.0 Malignant ascites; C79.9 Secondary malignant neoplasm of unspecified site; K59.00 Constipation, unspecified; R11.2 Nausea with vomiting, unspecified; Z51.5 Encounter for palliative care; K21.9 Gastro-esophageal reflux disease without esophagitis
CPT/HCPCS: 74022; 74022-26; 76705; 76705-26; 99222-AI; 99232; 99238; A9270-GY